=== PATIENT | male | born 1940 | race Caucasian/White ===

== ENCOUNTER 2019-02-12 07:01 | Inpatient (IN) ==
--- NOTE | 2019-02-06 09:42 | EKG Report ---
Test Performed on : 02/06/2019 09:37:44 AM Test Reason : PAT Blood Pressure : / mmHG Vent. Rate : 061 BPM Atrial Rate : 061 BPM P-R Int : 196 ms QRS Dur : 128 ms QT Int : 390 ms P-R-T Axes : 073 -49 069 degrees QTc Int : 392 ms Normal sinus rhythm. Left axis deviation Nonspecific intraventricular block Abnormal ECG When compared with ECG of 17-JUN-2013 10:54, No significant change was found Confirmed by Debbie YUAN, Dejuan Murillo ([id number]) on 02/07/2019 8:23:06 PM
[2019-02-06 10:09] LABS: URINE SOURCE CLEAN CATCH
[2019-02-06 10:32] LABS: BASO# 0.04 X1000 (0.0-0.2); BASO% 0.4 % (0.0-0.8); EOS# 0.26 X1000 (0.0-0.7); EOS% 2.8 % (0.0-10.0); HEMATOCRIT 34.6 % (42.0-52.0); HEMOGLOBIN 11.8 g/dL (14.0-18.0); IMM GRAN# 0.03 X1000 (0.0-0.04); IMM GRAN% 0.3 % (0.0-0.5); LYMPH# 1.63 X1000 (1.2-3.4); LYMPH% 17.8 % (20.5-51.1); MCH 30.7 PG (27-31); MCHC 34.1 g/dL (33-37); MCV 90.1 FL (81-99); MONO# 0.43 X1000 (0.11-0.59); MONO% 4.7 % (1.7-9.3); MPV 10.2 FL (7.4-10.4); NEUT# 6.79 X1000 (1.4-6.5); PLT 210 X1000 (130-400); RBC 3.84 XMIL (4.7-6.1); RDW 13.3 % (11.5-14.5); WBC 9.18 X1000 (4.8-10.8)
[2019-02-06 10:35] LABS: BILIRUBIN URINE NEGATIVE (NEGATIVE); BLOOD URINE NEGATIVE (NEGATIVE); COLOR YELLOW; GLUCOSE URINE NEGATIVE (NEGATIVE); KETONE URINE NEGATIVE (NEGATIVE); LEUKOCYTES URINE NEGATIVE (NEGATIVE); NITRITE URINE NEGATIVE (NEGATIVE); PROTEIN URINE NEGATIVE (NEGATIVE); SP GRAVITY URINE 1.018; TURBIDITY URINE CLEAR (CLEAR); UROBILINOGEN URINE NORMAL (NORMAL)
[2019-02-06 10:40] LABS: UR EPITHELIAL CELLS <10 /HPF (<10); URINE BACTERIA NEGATIVE /HPF; URINE RBC <10 /HPF (<10); URINE WBC <10 /HPF (<10)
[2019-02-06 10:44] LABS: HEMOGLOBIN A1C 4.6 % (4.8-6.0)
[2019-02-06 10:45] LABS: INR 1.06
[2019-02-06 10:46] LABS: PTT 32.4 Seconds (22.3-41.8)
[2019-02-06 11:11] LABS: CALCIUM 9.6 mg/dL (8.8-10.2); CREATININE 1.6 mg/dL (0.7-1.2); POTASSIUM 4.5 mmol/L (3.5-5.1)
[2019-02-12] MEDS ORDERED: LYRICA ONE (07:13)
[2019-02-12] MEDS ORDERED: COLACE ONE (07:13)
[2019-02-12] MEDS ORDERED: PEPCID ONE (07:13)
[2019-02-12] MEDS ORDERED: CELEBREX ONE (07:13)
[2019-02-12] MEDS ORDERED: LR 1,000 ML ONE (07:13)
[2019-02-12] MEDS ORDERED: REGLAN ONE (07:13)
[2019-02-12] MEDS ORDERED: KEFZOL 1 GM/D5W 2 GM/100 ML IVPB ONE (07:13)
[2019-02-12] MEDS ORDERED: DURAMORPH ONE (07:55)
[2019-02-12] MEDS ORDERED: TORADOL ONE (07:55)
[2019-02-12] MEDS ORDERED: MARCAINE 0.25% PF ONE (07:55)
[2019-02-12] MEDS ORDERED: VANCOMYCIN ONE (07:55)
[2019-02-12] MEDS ORDERED: CYKLOKAPRON 1,000 MG/NS 1,000 MG/100 ML IVPB ONE (07:56)
[2019-02-12] MEDS ORDERED: SODIUM CHLORIDE 0.9% ONE (07:56)
[2019-02-12] MEDS ORDERED: EXPAREL 1.3% ONE (07:56)
[2019-02-12] MEDS ORDERED: DIPRIVAN 1% ONE (08:07)
[2019-02-12] MEDS ORDERED: FENTANYL ONE (08:16)
[2019-02-12] MEDS ORDERED: XYLOCAINE-MPF 2% ONE (09:14)
[2019-02-12] MEDS ORDERED: OFIRMEV 1000 MG/ISOTONIC SOLN 1,000 MG/100 ML BOTTLE ONE (09:15)
[2019-02-12] MEDS ORDERED: DECADRON ONE (09:15)
[2019-02-12] MEDS ORDERED: ZOFRAN ONE (09:15)
[2019-02-12 09:41] LABS: URINE SOURCE CATH
[2019-02-12] MEDS ORDERED: ROBINUL ONE ×2 (09:46→10:58)
[2019-02-12 09:57] LABS: BILIRUBIN URINE NEGATIVE (NEGATIVE); BLOOD URINE NEGATIVE (NEGATIVE); COLOR YELLOW; GLUCOSE URINE NEGATIVE (NEGATIVE); KETONE URINE NEGATIVE (NEGATIVE); LEUKOCYTES URINE NEGATIVE (NEGATIVE); NITRITE URINE NEGATIVE (NEGATIVE); PH URINE 5.5; PROTEIN URINE TRACE mg/dL (NEGATIVE); SP GRAVITY URINE 1.022; TURBIDITY URINE CLEAR (CLEAR); UROBILINOGEN URINE NORMAL (NORMAL)
[2019-02-12 10:00] LABS: UR EPITHELIAL CELLS <10 /HPF (<10); URINE BACTERIA NEGATIVE /HPF; URINE WBC <10 /HPF (<10)
[2019-02-12] MEDS ORDERED: NS 1,000 ML ONE (10:55)
--- NOTE | 2019-02-12 11:27 | Diag Imaging Result Doc PS360 ---
EXAM: KNEE 1-2 VIEWS-LEFT 02/12/2019 HISTORY: L TKA TECHNIQUE: Two views COMMENT: There is a total knee arthroplasty. There is no evidence of fracture or other acute bony abnormality. IMPRESSION: Postsurgical changes. Electronically signed by Howie Perez 02/12/2019 11:25 AM
[2019-02-12] MEDS: NS 1,000 ML IV SCH (12:00)
[2019-02-12] MEDS ORDERED: MORPHINE IV PRN ×3 (12:30)
[2019-02-12] MEDS ORDERED: ZOFRAN ODT PO PRN (12:30)
[2019-02-12] MEDS ORDERED: ZOFRAN IV PRN (12:30)
[2019-02-12] MEDS ORDERED: OXY IR PO PRN ×2 (12:30)
--- NOTE | 2019-02-12 14:09 | OPERATIVE NOTE ---
PROCEDURE DATE: 02/12/2019 PREOP DIAGNOSIS: Degenerative joint disease left knee. POSTOP DIAGNOSIS: Degenerative joint disease left knee. PROCEDURE PERFORMED: Left total knee replacement. SURGEON: Melonie Ross MD. CASTING OPERATOR: RUBINA Pérez. Mr. Nava was necessary for proper retraction and manipulation of the leg. ANESTHESIA: Spinal. COMPLICATION: None. PROCEDURE IN DETAIL: 78-year-old male presents for left knee replacement. Risks, benefits, and no guarantees were discussed and he is willing to proceed. He was taken to the operating room and satisfactory anesthesia obtained. The left knee was prepped and draped in usual sterile fashion. A time-out was taken to confirm operative site, procedure, and patient. The leg was wrapped with an Esmarch and tourniquet inflated to 350 mmHg. A midline incision was made over the front of the knee followed by a quad tendon sparing arthrotomy. The patella was everted and resurfaced with freehand technique and subluxed laterally. The knee was flexed. An intramedullary hole made in the distal femur and the distal femoral cutting block secured in 5 degrees of valgus. Distal femoral resection was made and the femur sized to a DePuy Attune size 7 implant. The 4-in-1 block was secured and the anterior, posterior, and chamfer cuts sequentially made. Any remaining osteophytes were debrided about the femur. The knee was flexed and PCL retractor placed behind the tibia to protect the PCL and neurovascular bundle. The tibial cutting block was secured with extramedullary alignment and a tibial resection made. Flexion-extension gaps were roughly equal to 6 mm spacer block. The tibia was sized to a size 7 tibial tray. A trial reduction was performed with a size 7 tibial tray, a 7 x 6 mm polyethylene trial bearing and a size 7 cruciate retaining femoral component. Good range of motion and stability was noted. The patella was sized to a 38 medialized dome patella. Midline tracking was noted. Drill holes were placed for the patellar implant and femoral implant and the trial components removed. The bony surfaces were thoroughly irrigated with pulsatile lavage and then dried. Cement with a gram of vancomycin was utilized to cement a DePuy Attune size 7 rotating platform base plate, a size 7 left cruciate- retaining femoral component and a 38 medialized dome patella. While the cement cured, excess cement was removed with a [place] elevator and the joint capsule injected with Exparel for pain management. A Hemovac drain was placed and brought out through the lateral retinaculum. After curing the cement, a size 7 cruciate retaining rotating platform polyethylene bearing with a 6 mm thickness was inserted in the tibial tray and the knee reduced. Final range of motion was 0 to 120 degrees with midline patellar tracking. The arthrotomy was copiously irrigated at this point with irrigant and then closed over the drain with #1 Vicryl in the arthrotomy, 2-0 Vicryl in the subcutaneous and skin tesfaye on the skin edges. Sterile dressings completed the closure and the patient was recovered from anesthesia and transferred to the recovery room in stable condition. No intraoperative complications were noted. Instrument count and sponge count was correct at the time of closure. cc: Marcellus Ross MD
[2019-02-12] MEDS: ULTRAM PO SCH ×2 (16:24→21:20)
[2019-02-12] MEDS: TYLENOL PO SCH ×2 (16:25→21:20)
[2019-02-12] MEDS: KEFZOL 2 GM/D5W 2 GM/50 ML IVPB IV SCH (16:25)
[2019-02-12] MEDS ORDERED: ZOCOR PO SCH (21:00)
[2019-02-12] MEDS: PERIDEX MT SCH (21:18)
[2019-02-12] MEDS: COLACE PO SCH (21:19)
[2019-02-12] MEDS: CELEBREX PO SCH (21:21)
[2019-02-12] MEDS: PEPCID PO SCH (21:24)
--- NOTE | 2019-02-12 21:58 | ORTHOPAEDICS PROGRESS NOTE ---
DATE: 02/12/2019 SUBJECTIVE DATA: Mr. Garcia is seen on postoperative day 0, for his left total knee arthroplasty. He reports he is doing well at this time. He states he has 0/10 pain. He denies nausea, vomiting, or any other symptoms at this time. OBJECTIVE DATA: There is good sensation in left lower extremity. The bandages are clean and dry. There is negative Homans sign. There are good pedal pulses. There is good capillary refill in toes. 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 PLAN: We will plan on checking on Mr. Garcia in the morning. He is to continue with physical therapy. We will likely discharge him tomorrow, if he is doing well. Dictated by RUBINA Pérez for Marcellus Ross MD cc: RUBINA Pérez MD
[2019-02-13] MEDS: KEFZOL 2 GM/D5W 2 GM/50 ML IVPB IV SCH (01:38)
[2019-02-13] MEDS: NS 1,000 ML IV SCH (01:43)
[2019-02-13] MEDS: ULTRAM PO SCH ×3 (04:22→17:23)
[2019-02-13] MEDS: TYLENOL PO SCH ×3 (04:22→17:23)
[2019-02-13 07:13] LABS: HEMATOCRIT 30.9 % (42.0-52.0); HEMOGLOBIN 10.4 g/dL (14.0-18.0)
[2019-02-13 07:35] LABS: CALCIUM 8.7 mg/dL (8.8-10.2); CREATININE 1.6 mg/dL (0.7-1.2); POTASSIUM 4.6 mmol/L (3.5-5.1)
[2019-02-13] MEDS ORDERED: ASPIRIN PO SCH (09:00)
[2019-02-13] MEDS ORDERED: HYZAAR 50/12.5 MG PO SCH (09:00)
[2019-02-13] MEDS ORDERED: PEPCID PO SCH (09:00)
[2019-02-13] MEDS: CELEBREX PO SCH (09:32)
[2019-02-13] MEDS: COLACE PO SCH (09:32)
[2019-02-13] MEDS: PERIDEX MT SCH (09:33)
[2019-02-13] MEDS: PEPCID PO SCH (09:33)
--- NOTE | 2019-02-13 09:52 | ORTHOPAEDICS PROGRESS NOTE ---
DATE: 02/13/2019 Mr. Garcia is seen status post total knee replacement. Currently he is afebrile with stable vital signs. He is motor and sensory intact without any signs of infection or DVT. He can be discharged home later today after therapy. He is to continue with his home medicines. Will place him on [place] 10 as needed for pain, aspirin 325 a day for DVT prophylaxis and Bactrim for 7 days for wound prophylaxis. He can return in the interim for any worsening signs or symptoms. We will follow up with him in 2 weeks. cc: Marcellus Ross MD
[2019-02-13] MEDS ORDERED: FLU VACCINE IM ONE (10:13)
[2019-02-13] MEDS ORDERED: FLOMAX PO ONE (13:44)
[2019-02-13 16:32] VITALS: BP 128/58
== END 2019-02-13 18:07 | disposition home health service (06) | DRG 470 ==
LOC: OPS 07:01 → 4N 07:01 → PAT 07:01 → OBSVTOIN 09:13
PROVIDERS: ADMIT Orthopaedic Surgery Adult Reconstructive Orthopaedic Surgery; ATTEND Orthopaedic Surgery Adult Reconstructive Orthopaedic Surgery